=== PATIENT | male | born 1985 | race Two or more races ===

== ENCOUNTER 2021-04-12 12:57 | Day surgery (SDC) | payer OTHER ==
[2021-04-08 16:26] LABS: BASOPHILS # (AUTO) 0.1 X10'3 (0-0.2); BASOPHILS % (AUTO) 0.8 % (0-1); EOSINOPHILS # (AUTO) 0.1 X10'3 (0-0.9); LYMPHOCYTES # (AUTO) 2.3 X10'3 (1.1-4.8); LYMPHOCYTES % (AUTO) 24.2 % (21-51); MEAN CORPUSCULAR HEMOGLOBIN 28.8 PG (27.0-31.0); MEAN CORPUSCULAR HGB CONC 33.7 g/dL (33.0-36.5); MEAN CORPUSCULAR VOLUME 85.4 FL (78-98); MEAN PLATELET VOLUME 8.8 FL (7.4-10.4); MONOCYTES # (AUTO) 0.9 X10'3 (0-0.9); MONOCYTES % (AUTO) 9.6 % (2-12); NEUTROPHILS # (AUTO) 6.1 X10'3 (1.8-7.7); NEUTROPHILS % (AUTO) 64.4 % (42-75); PRE OP HEMATOCRIT 46.1 % (42.0-52.0); PRE OP HEMOGLOBIN 15.5 g/dL (14.0-17.9); PRE OP PLATELET COUNT 255 X10'3 (140-440)
[2021-04-08 16:29] LABS: CLARITY,URINE CLEAR (Clear); COLOR,URINE YELLOW (Yellow); GLUCOSE, URINE NEGATIVE (Neg); KETONES,URINE NEGATIVE (Neg); LEUKOCYTE ESTERASE ,URINE NEGATIVE (Neg); NITRITES, URINE NEGATIVE (Neg); OCCULT BLOOD,URINE NEGATIVE (Neg); PROTEIN,URINE TRACE mg/dl (Neg); UROBILINOGEN,URINE 0.2 E.U/dL (0.2-1.0)
[2021-04-08 16:32] LABS: UA COLLECTION TYPE CLN CATCH MIDSTREAM
[2021-04-08 16:35] LABS: ALBUMIN/GLOBULIN RATIO 1.2 (1.1-1.5); BLOOD UREA NITROGEN 19 MG/DL (7-18); BUN/CREATININE RATIO 18.3 (5.4-32.0); CALCIUM 8.4 MG/DL (8.5-10.1); CHLORIDE 106 MMOL/L (99-107); CREATININE 1.04 MG/DL (0.60-1.10); PRE OP ALT 60 U/L (30-65); PRE OP ANION GAP 8 (8-16); PRE OP AST 25 U/L (10-37); PRE OP BILIRUB, TOTAL 0.3 MG/DL (0.0-1.0); PRE OP GLUCOSE 131 MG/DL (70-104); PRE OP POTASSIUM 3.7 MMOL/L (3.4-5.1); PRE OP SODIUM 141 MMOL/L (135-145); TOTAL PROTEIN 7.3 G/DL (6.4-8.2); eGFR 80 ML/MIN
[2021-04-08 16:38] LABS: BACTERIA,URINE NONE SEEN /HPF (Neg); MUCUS STRANDS MODERATE /LPF (Neg); RBC,URINE 0-2 /HPF (0-2); SQUAMOUS EPITHELIAL CELL,UR NONE SEEN /LPF (FEW); WBC,URINE 0-4 /HPF (0-4)
[2021-04-08 16:44] LABS: ALKALINE PHOSPHATASE 78 IU/L (46-116)
[2021-04-12] VITALS (7 sets, daily range): BP systolic 127–154; BP diastolic 74–98
[~2021-04-12] VITALS: Ht 182.9 cm; Wt 152.4 kg
[~2021-04-12 12:57] MED LIST: NO HOME MEDS; ceFAZolin inj. 3,000 MG in normal saline 100ml IV soln 100 ML IV ONE; famotidine 20mg tablet PO ONE; ringers solution, lacted 1,000 ML IV SCH; vancomycin 1,500 MG in NS 300ml IV soln IV ONE
[2021-04-12] MEDS ORDERED: sevoflurane 250ml liquid IH ONE (15:00)
[2021-04-12] MEDS ORDERED: fentaNYL/PF 50MCG/1 ML 2ML syringe ONE (15:13)
[2021-04-12] MEDS ORDERED: MIDAZolam 1 MG/ML 5ML VIAL ONE (15:14)
[2021-04-12] MEDS ORDERED: ROPIVAcaine 0.5% (5mg/ml) 30ml vial ONE ×2 (15:15)
[2021-04-12] MEDS ORDERED: propofol inj 20 ML IV ONE (15:38)
[2021-04-12] MEDS ORDERED: LIDOcaine 2% (20mg/ml) 5ml vial ONE (15:38)
[2021-04-12] MEDS ORDERED: dexamethasone sod phosphate 4mg/ml inj. ONE (15:40)
[2021-04-12] MEDS ORDERED: ondansetron/PF 4mg/2ml inj ONE (15:40)
[2021-04-12] MEDS ORDERED: morphine 2 MG/ML inj. syringe IV PRN (16:05)
[2021-04-12] MEDS ORDERED: proCHLORperazine 10 MG/2 ml inj IV PRN (16:05)
[2021-04-12] MEDS ORDERED: meperidine/PF 25mg/ml syringe IV PRN ×3 (16:05)
[2021-04-12] MEDS ORDERED: morphine 4 MG/ML inj SYRINge IV PRN (16:05)
[2021-04-12] MEDS ORDERED: ringers solution, lacted 1,000 ML IV SCH (16:05)
[2021-04-12] MEDS ORDERED: ondansetron/PF 4mg/2ml inj IV PRN (16:05)
--- NOTE | 2021-04-12 17:40 | NUR ---
Received from OR via , accompanied by Anesthesiologist and report given by Anesthesiolgist. PATIENT A&OX4, DENIES PAIN, V/S WNL, SCD ON , PIV 20G RUE,DRESSING WITH [facility] TO [facility].
--- NOTE | 2021-04-12 18:30 | NUR ---
PATIENT A&OX4, DENIES PAIN, V/S WNL, SCD OFF , PIV 20G RUE D/C,DRESSING WITH [facility] TO [facility].I HAVE REVIEWED D/C INSTRUCTIONS WITH PATIENT AND THEY HAVE VERBALIZED UNDERSTANDING OF INSTRUCTIONS. PATIENT D/C HOME WITH ALL BELONGINGS AND FAMILY GAVE TRANSPORT
== END 2021-04-12 18:30 | disposition home or self-care (01) ==
LOC: PAS 12:57
PROVIDERS: ATTEND Orthopaedic Surgery
DX: S46.212A Strain of muscle, fascia and tendon of other parts of biceps, left arm, initial encounter (principal); G89.18 Other acute postprocedural pain; G47.33 Obstructive sleep apnea (adult) (pediatric); K21.9 Gastro-esophageal reflux disease without esophagitis; I10 Essential (primary) hypertension; E66.01 Morbid (severe) obesity due to excess calories; Z68.42 Body mass index [BMI] 45.0-49.9, adult; Z20.822 Contact with and (suspected) exposure to COVID-19; Z87.891 Personal history of nicotine dependence; Z79.899 Other long term (current) drug therapy; X58.XXXA Exposure to other specified factors, initial encounter; Y93.89 Activity, other specified; Y92.89 Other specified places as the place of occurrence of the external cause; Y99.8 Other external cause status
CPT/HCPCS: 24342; 36415; 64415; 76942; 80053; 81001; 82948; 85025; C1713; J0690; J1100; J2001; J2250; J2405; J2704; J3010; J3370; J7040; U0003; Z7506; Z7508; Z7512; A4215; A4565; A4618; A6250; A6449; A7000; J2795; J7120

== ENCOUNTER 2024-10-12 10:23 | Emergency (ER) | payer OTHER ==
[~2024-10-12] VITALS: Ht 182.9 cm; Wt 146.0 kg
[~2024-10-12 10:23] MED LIST changes: -ceFAZolin inj. 3,000 MG in normal saline 100ml IV soln 100 ML IV ONE; -famotidine 20mg tablet PO ONE; -ringers solution, lacted 1,000 ML IV SCH; -vancomycin 1,500 MG in NS 300ml IV soln IV ONE
[2024-10-12] MEDS ORDERED: diltiazem 5mg/ml 5ml inj. IV ONE (10:40)
[2024-10-12] MEDS: diltiazem 5mg/ml 5ml inj. IV ONE (10:59)
[2024-10-12] MEDS ORDERED: diltiazem 5mg/ml 5ml inj. IV PRN (11:00)
[2024-10-12] MEDS: normal saline 1000ML IV soln IVB ONE (11:03)
[2024-10-12 11:27] LABS: BASOPHILS # (AUTO) 0.1 X10'3 (0-0.2); BASOPHILS % (AUTO) 0.9 % (0-1); EOSINOPHILS # (AUTO) 0.1 X10'3 (0-0.9); EOSINOPHILS % (AUTO) 1.1 % (0-6); HEMATOCRIT 49.9 % (42.0-52.0); HEMOGLOBIN 16.8 g/dl (14.0-17.9); LYMPHOCYTES # (AUTO) 3.4 X10'3 (1.1-4.8); LYMPHOCYTES % (AUTO) 28.5 % (21-51); MEAN CORPUSCULAR HEMOGLOBIN 28.8 PG (27.0-31.0); MEAN CORPUSCULAR HGB CONC 33.7 g/dL (33.0-36.5); MEAN CORPUSCULAR VOLUME 85.5 FL (78-98); MEAN PLATELET VOLUME 8.5 FL (7.4-10.4); MONOCYTES # (AUTO) 1.2 X10'3 (0-0.9); MONOCYTES % (AUTO) 10.5 % (2-12); PLATELET COUNT 319 X10'3 (140-440); RED BLOOD COUNT 5.83 X10'6 (4.70-6.10); RED CELL DISTRIBUTION WIDTH 13.8 % (11.5-14.5); WHITE BLOOD COUNT 11.8 X10'3 (4.5-11.0)
[2024-10-12 11:49] LABS: ALANINE AMINOTRANSFERASE 54 U/L (12-78); ALBUMIN 3.9 G/DL (3.4-5.0); ALKALINE PHOSPHATASE 95 IU/L (46-116); ANION GAP 7 (8-16); ASPARTATE AMINO TRANSFERASE 36 U/L (10-37); BILIRUBIN,TOTAL 0.4 MG/DL (0.1-1.0); BLOOD UREA NITROGEN 22 MG/DL (7-18); BUN/CREATININE RATIO 22.9 (10.0-20.0); CALCIUM 9.1 MG/DL (8.5-10.1); CHLORIDE 106 MMOL/L (99-107); CREATININE 0.96 MG/DL (0.60-1.10); GLUCOSE 106 MG/DL (70-104); POTASSIUM 3.8 MMOL/L (3.5-5.1); SODIUM 139 MMOL/L (135-145); TOTAL CARBON DIOXIDE 26.3 MMOL/L (24-32); TOTAL PROTEIN 7.9 G/DL (6.4-8.2); eCRCL 111 ML/MIN; eGFR 86 ML/MIN
[2024-10-12 11:56] LABS: MAGNESIUM 1.9 MG/DL (1.5-2.4); PRO BRAIN NATRIURETIC PEPTIDE 364 PG/ML (0-125)
[2024-10-12] MEDS: etomidate 2mg/ml inj. IV ONE (12:15)
[2024-10-12] MEDS: magnesium sulf-water 2g/50mL 50 ML IV ONE (12:28)
[2024-10-12] MEDS ORDERED: METO-384 PO (12:45)
[2024-10-12 14:48] VITALS: BP 121/69; PULSE 78; RESP 14; TEMP 97.8; O2SAT 16
== END 2024-10-12 14:53 | disposition home or self-care (01) ==
LOC: ER 10:23
DX: I48.20 Chronic atrial fibrillation, unspecified (principal); Z79.899 Other long term (current) drug therapy
CPT/HCPCS: 36415; 71045; 80053; 83735; 83880; 84484; 85025; 93005; 96361; 96365; 96375; 99285; J3490; J7030; A4620

== ENCOUNTER 2025-01-31 10:02 | Emergency (ER) | payer OTHER ==
[~2025-01-31] VITALS: Ht 182.9 cm; Wt 152.7 kg
[~2025-01-31 10:02] MED LIST changes: +METO-384 PO
[2025-01-31] MEDS ORDERED: AMOX-117 PO (11:06)
--- NOTE | 2025-01-31 11:07 | Physician Documentation ---
History of Present Illness ~ Chief Complaint: See Chief Complaint Stated Complaint: LYMPH NODE SWELLING Time Seen by MD: 10:27 OK to notify your PCP?: Yes Primary Medical Doctor: LAURA Source: patient Mode of Arrival: POV Exam Limitations: no limitations HPI 39-year-old male with chief complaint swollen lymph nodes in his neck which he states are sore to touch and started about a month ago. Initially it started when the crown fell off of his tooth and he went and got a prescription for Augmentin which did help with the size of the lymph nodes and tenderness. He has since had the crown replaced by the dentist but states that the lymph nodes started to get large again. He states I have been sick for like two weeks. He states the dental pain is minimal that he has but even when the crown fell off he states he had minimal dental pain. He adds that he just has not felt very good and he is requesting antibiotics. He is a patient of the [facility] and states that he [facility] for [facility] work[facility] if the lymph nodes do not decrease in size. He does not want any imaging here or further treatment in his slowly requesting a antibiotic. He denies fever, chills, sore throat, painful or difficulty swallowing, night sweats or unexplainable weight loss. 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 Medication Reconciliation Allergies: Coded Allergies: No Known Allergies (Unverified , 01/31/25) Scheduled Metoprolol Succinate (Metoprolol Succinate), 1 TAB PO DAILY Miscellaneous Medications Home Med List (No Home Medications), (Reported) Past Medical History Past Medical History: No Pertinent History Past Surgical History: noncontributory Alcohol Use: None Drug Use: none Lives with: Spouse Lives In: Home Review of Systems All Other Systems at this time: Reviewed and Negative Physical Exam Vital Signs: Temperature: 97.2, Source: Temporal, Heart Rate: 87, Respiratory Rate: 16, BP: 158/104, Pulse Oximetry: 93, Weight: 152.700 Oxygen Flow Rate: 0 Physical Exam GENERAL: Alert, no acute distress. HEENT: NCAT, EOMI, PERRL, normal oropharynx, moist oral mucosa. Gingiva on the left buccal side of the back lower molar is mildly erythematous and edematous but no tenderness to palpation. No tenderness over the lingual side. Posterior pharyngeal wall normal NECK: Supple, trachea midline. Bilateral anterior cervical lymphadenopathy more so on the left than right, thyroid appears enlarged as well, nontender. Tenderness over the left submandibular lymph node but otherwise no other tenderness CARDIAC: Regular rate and rhythm, no murmurs, rubs, or gallops. RESPIRATORY: Equal breath sounds, clear to auscultation bilaterally, no respiratory distress. MUSCULOSKELETAL: Normal range of motion, nontender, no swelling. Normal gait. NEUROLOGICAL: Awake, alert, and oriented x 3. SKIN: Warm/dry, no pallor, no rash. PSYCH: Alert and appropriate. Affect congruent with mood. Speech is clear. Good eye contact. Progress Results/Orders Results/Orders Vital Signs 01/31/25 10:04 Temp 97.2 Pulse 87 Resp 16 B/P (MAP) 158/104 Pulse Ox 93 O2 Flow Rate 0 Medical Decision Making Tooth Diff. Dx: Considerations: Include: Alveolar fracture, Aveolar osteitis, ANUG, Facial cellulitis, Periapical abscess, Periodontal abscess, Post- extraction bleeding, Pulpitis, Trigeminal neuralgia, Tooth-avulsion, Tooth-eruption, Tooth-fracture, Tooth-subluxation Departure Time of Disposition: 11:05 Disposition: 01 HOME / SELF CARE / HOMELESS Impression: Primary Impression: Gingivitis Additional Impressions: Pain, dental Lymphadenopathy of head and neck Enlarged thyroid Condition: Stable Discharge Instructions: Lymphadenopathy Additional Instructions: we discussed the concern about persistent lymphadenopathy and my recommendation for imaging studies your thyroid also appears enlarged on exam and the imaging to look at the enlarged cervical lymph nodes would also look at the thyroid gland you wanted to get imaging outside of the ER and have good follow up antibiotic sent to pharmacy for the possible lingering dental infection Referrals: NO PRIMARY CARE PROVIDER (PCP) Prescriptions Amox Tr/Potassium Clavulanate (Augmentin 875-125 Tablet) 1 Each Tablet 1 TAB PO Q12H for 10 Days, #20 TAB Prov: ISABELLE GIL 01/31/25 Signature Scribe Signature: x Attestation: ISABELLE Torres Jan 31, 2025 11:07
[2025-01-31 11:15] VITALS: BP 118/76; PULSE 88; RESP 18; TEMP 97.2; O2SAT 99
== END 2025-01-31 11:23 | disposition home or self-care (01) ==
LOC: ER 10:03
DX: K05.10 Chronic gingivitis, plaque induced (principal); K08.89 Other specified disorders of teeth and supporting structures; R59.0 Localized enlarged lymph nodes; E04.9 Nontoxic goiter, unspecified; Z79.899 Other long term (current) drug therapy
CPT/HCPCS: 99283